=== PATIENT | female | born 1960 | race Caucasian/White ===

== ENCOUNTER 2017-01-20 12:50 | Emergency (ER) | payer OTHER ==
[~2017-01-20] VITALS: Ht 165.1 cm; Wt 136.1 kg
[2017-01-20 13:05] VITALS: BP 137/85
--- NOTE | 2017-01-20 13:07 | Emergency Room Report ---
History of Present Illness General Chief Complaint: Multiple Trauma/Fall Source: Patient, EMS Present Illness HPI Patient presents with complaints of right hip pain Patient was sitting on a chair cleaning out a sure that was on the floor Her chair essentially gave out and the patient fell to the ground Patient has increased pain to the right hip There was trauma laying on top of the drawer Patient has pain with movement of the right upper hip area 8/10 Denies any other chest pain or shortness of breath denies any knee pain Denies any midline back pain Allergies: Coded Allergies: ASPIRIN (Verified Allergy, Unknown, 01/20/17) IODINE (Verified Allergy, Unknown, 01/20/17) PENICILLINS (Verified Allergy, Unknown, 01/20/17) Patient History Past Medical History: see triage record Pertinent Family History: none Reviewed Nursing Documentation: PMH: Agreed, PSxH: Agreed Nursing Documentation-PMH Past Medical History: No Stated History Review of Systems All Other Systems: negative except mentioned in HPI Physical Exam Vital Signs Date Time Temp Pulse Resp B/P (MAP) Pulse Ox O2 Delivery O2 Flow Rate FiO2 01/20/17 12:48 98.1 84 18 135/81 98 Room Air Sp02 EP Interpretation: reviewed, normal General Appearance: alert, mild distress - In acute pain Head: normocephalic, atraumatic Eyes: bilateral eye PERRL, bilateral eye EOMI ENT: hearing grossly normal, normal pharynx, TMs + canals normal, uvula midline Neck: full range of motion, supple, no meningismus, no bony tend Respiratory: lungs clear, normal breath sounds, no rhonchi, no respiratory distress, no retraction, no accessory muscle use Cardiovascular #1: normal peripheral pulses, regular rate, rhythm, no edema, no gallop, no JVD, no murmur Gastrointestinal: normal bowel sounds, non tender, soft, no mass, no organomegaly, non-distended, no guarding, no hernia, no pulsatile mass, no rebound Genitourinary: no CVA tenderness Musculoskeletal: other - Patient is lying on her left side, attempts of moving her palpating the right hip does cause increased pain, patient is neurovascularly intact distally however midline low back does not reveal any discomfort Neurologic: oriented x3, responsive, sensory intact Psychiatric: mood/affect normal Skin: normal color, no rash, warm/dry, palpation normal Lymphatic: normal inspection, no adenopathy Medical Decision Making Diagnostic Impression: Primary Impression: Contusion, hip ER Course Given the patient's pain and presentation imaging study was obtained negative for acute fracture patient is able to bear weight At this time we'll have initial conservative outpatient trial Other X-Ray Diagnostic Results Other X-Ray Diagnostic Results : X-Ray ordered: right hip # of Views/Limited Vs Complete: 3 View Indication: Pain EP Interpretation: Yes Interpretation: no dislocation, no soft tissue swelling, no fractures Impression: No acute disease Electronically Signed by: Momo Perkins DO Last Vital Signs Date Time Temp Pulse Resp B/P (MAP) Pulse Ox O2 Delivery O2 Flow Rate FiO2 01/20/17 12:48 98.1 84 18 135/81 98 Room Air Status: improved Disposition: HOME, SELF-CARE Condition: Improved Scripts Hydrocodone Bit/Acetaminophen 5-325* (NORCO 5-325*) 1 Each Tablet 1 TAB ORAL Q6H Y for For Pain, #10 TAB 0 Refills Prov: MOMO PERKINS D.O. 01/20/17 Methocarbamol* (ROBAXIN-750*) 750 Mg Tablet 750 MG PO TID, #21 TAB 0 Refills Prov: MOMO PERKINS D.O. 01/20/17 Ibuprofen* (MOTRIN*) 600 Mg Tablet 600 MG ORAL Q8H Y for For Pain, #20 TAB 0 Refills Prov: MOMO PERKINS D.O. 01/20/17 Additional Instructions: Patient is provided with the discharge instructions notified to follow up with primary doctor in the next 2-3 days otherwise return to the er with any worsening symptoms. Please note that this report is being documented using [employer] technology. This can lead to erroneous entry secondary to incorrect interpretation by the dictating instrument. MOMO PERKINS D.O. Jan 20, 2017 13:07
[2017-01-20] MEDS ORDERED: Ketorolac 60mg Inj IM ONE (13:15)
[2017-01-20] MEDS ORDERED: Norco 10mg/325mg tab ORAL ONE (13:15)
[2017-01-20 14:30] VITALS: BP 135/82
[2017-01-20] MEDS ORDERED: IBUPROFEN600 MG ORAL (14:30)
[2017-01-20] MEDS ORDERED: NORCO 5-325 TA1 EACH ORAL (14:30)
[2017-01-20] MEDS ORDERED: ROBAXIN-750750 MG PO (14:30)
--- NOTE | 2017-01-20 15:21 | Diagnostic Imaging Report ---
Indication: PAIN Technique: 3 views right foot Comparison: none Findings: Exam is limited by body habitus, inability to position optimally. No definite acute fractures. No dislocations. Joint spaces are preserved. Impression: Very limited exam. No definite acute bony trauma
[2017-01-20 16:00] VITALS: BP 135/82
== END 2017-01-20 16:00 | disposition home or self-care (01) ==
LOC: EDBD 12:50 → EMR 15:15
DX: S70.01XA Contusion of right hip, initial encounter (principal); W07.XXXA Fall from chair, initial encounter; Y92.89 Other specified places as the place of occurrence of the external cause; Y99.0 Civilian activity done for income or pay; Z88.0 Allergy status to penicillin; Z88.6 Allergy status to analgesic agent
CPT/HCPCS: 96372; 99284